=== PATIENT | female | born 1940 | race African-American/Black ===

== ENCOUNTER 2020-09-05 12:09 | Emergency (ER) | payer BC, MEDICAID ==
[~2020-09-05] VITALS: Ht 167.6 cm; Wt 83.0 kg
[~2020-09-05 12:09] MED LIST: ASPI-1158; ATEN-42; ATOR10TA PO; BENA40TA9; CIPR-263 PO; HYDR-523 PO; HYDR25TA PO; LEVO500T2 PO; MELO-106 PO; METO2.5T14 PO; METR250T PO; NIFE60TA78; OYSTER SHELL CALCIUM 500 MG
[2020-09-05 12:18] VITALS: BP 157/80
== END 2020-09-05 14:12 | disposition home or self-care (01) ==
LOC: ER 12:09
DX: M54.5 Low back pain (principal); I10 Essential (primary) hypertension; M19.90 Unspecified osteoarthritis, unspecified site; Z96.659 Presence of unspecified artificial knee joint; Z88.0 Allergy status to penicillin
CPT/HCPCS: 99283